=== PATIENT | male | born 1930 | race Caucasian/White ===

== ENCOUNTER 2016-09-12 15:19 | Observation (INO) | payer MEDICAID, MEDICARE ==
[~2016-09-12] VITALS: Ht 172.7 cm; Wt 81.6 kg
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
[2016-09-12 16:45] LABS: EOSINOPHILS % (AUTO) 2.9 % (0.0-3.0); LYMPHOCYTES % (AUTO) 24.8 % (20.0-45.0); MEAN CORPUSCULAR HEMOGLOBIN 30.2 PG (27.0-31.0); MEAN CORPUSCULAR HGB CONC 32.4 G/DL (32.0-36.0); MEAN CORPUSCULAR VOLUME 93 FL (80-99); MEAN PLATELET VOLUME 6.2 FL (6.5-10.1); MONOCYTES % (AUTO) 5.7 % (1.0-10.0); NEUTROPHILS % (AUTO) 65.7 % (45.0-75.0); PLATELET COUNT 175 K/UL (150-450); RED BLOOD COUNT 4.69 M/UL (4.70-6.10); RED CELL DISTRIBUTION WIDTH 12.5 % (11.6-14.8); WHITE BLOOD COUNT 8.5 K/UL (4.8-10.8)
--- NOTE | 2016-09-12 16:48 | Diagnostic Imaging Report ---
Indication: PAIN Technique: One view of the chest Comparison: 07/30/2015 Findings: The lungs and pleural spaces are clear. Heart size is borderline enlarged. The aorta is tortuous ectatic and calcified. Incidentally noted is a comminuted fracture of the left proximal humeral shaft Impression: No acute cardio pulmonary process Left humeral fracture incidentally noted Findings discussed by phone with nurse in the emergency room at the time of interpretation
[2016-09-12 16:51] LABS: PROTHROMBIN TIME 10.5 SEC (9.30-11.50)
[2016-09-12 16:56] LABS: TROPONIN I < 0.30 ng/mL (<=0.30)
[2016-09-12 16:57] LABS: ALANINE AMINOTRANSFERASE 28 U/L (3-41); ALBUMIN/GLOBULIN RATIO 1.4 (1.0-2.7); ANION GAP 17 (5-15); ASPARTATE AMINO TRANSFERASE 25 U/L (5-40); CALCIUM 10.2 mg/dL (8.6-10.2); CARBON DIOXIDE 24 mEQ/L (20-30); CHLORIDE 100 mEQ/L (98-107); CREATININE 1.2 mg/dL (0.7-1.2); HEMOLYSIS 19; POTASSIUM 4.3 mEQ/L (3.4-4.9); SODIUM 141 mEQ/L (135-145); TOTAL PROTEIN 7.5 g/dL (6.6-8.7)
[2016-09-12 17:06] VITALS: BP 211/94
[2016-09-12 17:21] LABS: CKMB 2.8 ng/mL (< 6.7)
[2016-09-12 17:22] LABS: APPEARANCE,URINE CLEAR; KETONES,URINE NEGATIVE (NEGATIVE); LEUKOCYTE ESTERASE ,URINE NEGATIVE (NEGATIVE); NITRITE,URINE NEGATIVE (NEGATIVE); PH,URINE 5 (4.5-8.0); PROTEIN,URINE 1+ (NEGATIVE); UROBILINOGEN,URINE NORMAL MG/DL (0.0-1.0)
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
[2016-09-12 17:43] VITALS: BP 210/119
[2016-09-12] MEDS ORDERED: TdaP Vaccine 0.5ml Syr IM ONE (17:45)
[2016-09-12] MEDS ORDERED: Lidocaine 1% 10mg/ml/EPI 0.01mg/ml 50ml INJ ONE (17:45)
[2016-09-12 17:54] LABS: AMORPHOUS SEDIMENT,UR FEW /LPF; BACTERIA,URINE FEW /HPF; WBC,URINE 0-2 /HPF (0 - 0)
[2016-09-12 18:30] VITALS: BP 148/87
[2016-09-12 20:37] VITALS: BP 152/81
[2016-09-13] VITALS: BP 154/80
[2016-09-13] MEDS: Norco 5mg/325mg tab ORAL PRN ×2 (00:25→06:27)
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
[2016-09-13 04:00] VITALS: BP 120/66
[2016-09-13] MEDS ORDERED: NKM (07:39)
[2016-09-13] MEDS ORDERED: vitamin b 12 SUBQ (07:44)
[2016-09-13 07:50] VITALS: BP 128/64
[2016-09-13 09:13] LABS: BASOPHILS % (AUTO) 0.4 % (0.0-2.0); EOSINOPHILS % (AUTO) 0.2 % (0.0-3.0); LYMPHOCYTES % (AUTO) 10.8 % (20.0-45.0); MEAN CORPUSCULAR HEMOGLOBIN 29.7 PG (27.0-31.0); MEAN CORPUSCULAR HGB CONC 32.2 G/DL (32.0-36.0); MEAN CORPUSCULAR VOLUME 92 FL (80-99); MEAN PLATELET VOLUME 6.5 FL (6.5-10.1); MONOCYTES % (AUTO) 8.1 % (1.0-10.0); NEUTROPHILS % (AUTO) 80.5 % (45.0-75.0); PLATELET COUNT 236 K/UL (150-450); RED CELL DISTRIBUTION WIDTH 12.6 % (11.6-14.8)
[2016-09-13 09:30] LABS: ALANINE AMINOTRANSFERASE 27 U/L (3-41); ALBUMIN/GLOBULIN RATIO 1.4 (1.0-2.7); ANION GAP 18 (5-15); ASPARTATE AMINO TRANSFERASE 24 U/L (5-40); CALCIUM 9.7 mg/dL (8.6-10.2); CARBON DIOXIDE 24 mEQ/L (20-30); CHLORIDE 97 mEQ/L (98-107); CREATININE 1.2 mg/dL (0.7-1.2); HEMOLYSIS 6; SODIUM 139 mEQ/L (135-145); TOTAL PROTEIN 7.5 g/dL (6.6-8.7)
[2016-09-13 09:42] LABS: BILIRUBIN,DIRECT 0.2 mg/dL (0.1-0.3)
[2016-09-13 11:18] VITALS: BP 129/70
--- NOTE | 2016-09-13 15:09 | Geriatric Progress Note ---
Assessment/Plan Problems: (1) Concussion (2) Left humeral fracture (3) Laceration of forehead without complication Assessment/Plan Patient stable for return to [facility]. Tylenol, Zofran, [place] prescribed. Will arrange C to f/u, P.T., O.T., remove sutures. To see Dr. Decker in one week. Continue regimen otherwise. Dictated #[id number] Discussed with: patient, hospital staff, [facility] staff Subjective Interval Events Patient reports feeling better. Last p.m. developed nausea, vomiting, c/w concussion. Today no vomiting, but still nauseated. Able to drink fluid. Denies h/a, visual or auditory changes. Speech, mental status c/w baseline. Pain required [place] last p.m., adequately controlled. Cleared by Dr. Decker for d/c. Sling placed, brace ordered. Laceration sutured. Leukocytosis this am likely reactive. CK elevated due to muscle injury. Otherwise labs unremarkable. Able to ambulate with P.T. Constitutional: Reports: malaise, weakness, Denies: chills, fever, sweats Eye: Denies: blurred vision, double vision, eye pain ENT: Denies: ear pain, hearing loss Respiratory: Denies: shortness of breath, wheezing Cardiovascular: Denies: chest pain, edema, palpitations Gastrointestinal/Abdominal: Reports: nausea Genitourinary: Denies: dysuria Musculoskeletal: Reports: muscle pain, Denies: back pain, joint pain Neurologic: Denies: dizziness, headache, numbness, paresthesia, seizure, tingling Geriatric Geriatric Last 24 Hour Vital Signs Date Time Temp Pulse Resp B/P Pulse Ox O2 Delivery O2 Flow Rate FiO2 09/13/16 12:00 77 09/13/16 11:18 97.5 63 19 129/70 98 Room Air 09/13/16 09:55 77 78 87 09/13/16 08:00 74 09/13/16 07:50 96.8 84 20 128/64 94 Room Air 09/13/16 04:00 98.2 93 20 120/66 93 Room Air 09/13/16 04:00 91 09/13/16 01:00 112 113 09/13/16 00:00 97.2 112 20 154/80 94 Room Air 09/13/16 00:00 106 09/12/16 21:40 107 09/12/16 21:00 108 114 09/12/16 20:39 98.9 81 16 152/81 100 Room Air 09/12/16 20:37 98.9 81 16 152/81 100 Room Air 09/12/16 18:30 74 24 148/87 97 Room Air 09/12/16 17:44 210/119 09/12/16 17:43 89 24 210/119 97 Room Air 09/12/16 17:06 99.0 74 16 211/94 94 Room Air 09/12/16 15:14 99.0 89 16 211/94 94 Room Air Intake and Output 09/12/16 09/13/16 19:00 07:00 Output Total 350 ml 700 ml Balance -350 ml -700 ml Output Urine Total 350 ml 700 ml # Voids 2 Laboratory Tests Test 09/12/16 16:20 09/12/16 17:00 09/13/16 08:35 White Blood Count 8.5 K/UL (4.8-10.8) 12.0 K/UL (4.8-10.8) H Red Blood Count 4.69 M/UL (4.70-6.10) L 4.80 M/UL (4.70-6.10) Hemoglobin 14.2 G/DL (14.2-18.0) 14.3 G/DL (14.2-18.0) Hematocrit 43.7 % (42.0-52.0) 44.4 % (42.0-52.0) Mean Corpuscular Volume 93 FL (80-99) 92 FL (80-99) Mean Corpuscular Hemoglobin 30.2 PG (27.0-31.0) 29.7 PG (27.0-31.0) Mean Corpuscular Hemoglobin Concent 32.4 G/DL (32.0-36.0) 32.2 G/DL (32.0-36.0) Red Cell Distribution Width 12.5 % (11.6-14.8) 12.6 % (11.6-14.8) Platelet Count 175 K/UL (150-450) 236 K/UL (150-450) Mean Platelet Volume 6.2 FL (6.5-10.1) L 6.5 FL (6.5-10.1) Neutrophils (%) (Auto) 65.7 % (45.0-75.0) 80.5 % (45.0-75.0) H Lymphocytes (%) (Auto) 24.8 % (20.0-45.0) 10.8 % (20.0-45.0) L Monocytes (%) (Auto) 5.7 % (1.0-10.0) 8.1 % (1.0-10.0) Eosinophils (%) (Auto) 2.9 % (0.0-3.0) 0.2 % (0.0-3.0) Basophils (%) (Auto) 1.0 % (0.0-2.0) 0.4 % (0.0-2.0) Prothrombin Time 10.5 SEC (9.30-11.50) Prothromb Time International Ratio 1.0 (0.9-1.1) Sodium Level 141 mEQ/L (135-145) 139 mEQ/L (135-145) Potassium Level 4.3 mEQ/L (3.4-4.9) 4.0 mEQ/L (3.4-4.9) Chloride Level 100 mEQ/L (98-107) 97 mEQ/L (98-107) L Carbon Dioxide Level 24 mEQ/L (20-30) 24 mEQ/L (20-30) Anion Gap 17 (5-15) H 18 (5-15) H Blood Urea Nitrogen 31 mg/dL (7-23) H 29 mg/dL (7-23) H Creatinine 1.2 mg/dL (0.7-1.2) 1.2 mg/dL (0.7-1.2) Estimat Glomerular Filtration Rate mL/min (>60) mL/min (>60) Glucose Level 142 mg/dL (74-106) H 188 mg/dL (74-106) H Calcium Level 10.2 mg/dL (8.6-10.2) 9.7 mg/dL (8.6-10.2) Total Bilirubin 0.3 mg/dL (0.0-1.2) 1.1 mg/dL (0.0-1.2) Aspartate Amino Transf (AST/SGOT) 25 U/L (5-40) 24 U/L (5-40) Alanine Aminotransferase (ALT/SGPT) 28 U/L (3-41) 27 U/L (3-41) Alkaline Phosphatase 38 U/L (40-129) L 36 U/L (40-129) L Total Creatine Kinase 78 U/L (38-174) 184 U/L (38-174) H Creatine Kinase MB 2.8 ng/mL (< 6.7) Creatine Kinase MB Relative Index 3.5 Troponin I < 0.30 ng/mL (<=0.30) Total Protein 7.5 g/dL (6.6-8.7) 7.5 g/dL (6.6-8.7) Albumin 4.4 g/dL (3.5-5.2) 4.4 g/dL (3.5-5.2) Globulin 3.1 g/dL 3.1 g/dL Albumin/Globulin Ratio 1.4 (1.0-2.7) 1.4 (1.0-2.7) Urine Color Pale yellow Urine Appearance Clear Urine pH 5 (4.5-8.0) Urine Specific [place] 1.025 (1.005-1.035) Urine Protein 1+ (NEGATIVE) H Urine Glucose (UA) Negative (NEGATIVE) Urine Ketones Negative (NEGATIVE) Urine Occult Blood 1+ (NEGATIVE) H Urine Nitrite Negative (NEGATIVE) Urine Bilirubin Negative (NEGATIVE) Urine Urobilinogen Normal MG/DL (0.0-1.0) Urine Leukocyte Esterase Negative (NEGATIVE) Urine RBC 2-4 /HPF (0 - 0) H Urine WBC 0-2 /HPF (0 - 0) Urine Squamous Epithelial Cells None /LPF (NONE/OCC) Urine Amorphous Sediment Few /LPF (NONE) H Urine Bacteria Few /HPF (NONE) Direct Bilirubin 0.2 mg/dL (0.1-0.3) Current Medications Medications (Trade) Dose Ordered Sig/Sherley Route PRN Reason Start Time Stop Time Status Last Admin Dose Admin Acetaminophen (Tylenol) 500 mg Q4H PRN ORAL Mild Pain (Pain Scale 1-3) 09/12/16 19:30 10/12/16 19:29 Acetaminophen/ Hydrocodone Bitart ([place] 5/325) 1 tab Q6H PRN ORAL Severe Pain (Pain Scale 7-10) 09/12/16 19:30 09/19/16 19:29 09/13/16 06:27 Dextrose (Dextrose 50%) STAT PRN IV Hypoglycemia 09/13/16 03:30 10/13/16 03:29 Ranitidine HCl (Zantac) 150 mg BEDTIME ORAL 09/12/16 21:00 10/12/16 20:59 09/12/16 22:20 Height (Feet): 5 Height (Inches): 8.00 Weight (Pounds): 180 General Appearance: alert Head: normocephalic, other - excoriation bridge of nose, L supraorbital sutured laceration Eyes: bilateral anicteric ENT: normal voice Neck: full range of motion, no mass Respiratory: lungs clear Cardiovascular: regular rate, rhythm Gastrointestinal: normal bowel sounds, non tender, soft, no mass, no organomegaly, non-distended, no guarding Musculoskeletal: no calf tenderness Edema: no edema noted Generalized Neurologic: alert, oriented x3, motor strength/tone normal - except LUE in sling. PB VILLAFANA Sep 13, 2016 15:09
[2016-09-13 15:59] VITALS: BP 134/60
[2016-09-13] MEDS ORDERED: TYLENOL325 MG ORAL (16:25)
[2016-09-13] MEDS ORDERED: ZOFRAN4 M1 ORAL (16:27)
[2016-09-13] MEDS ORDERED: NORCO 5-325 TA1 EAC1 ORAL (16:35)
--- NOTE | 2016-09-13 23:09 | Cardiology Report ---
APPROVED REPORT EKG Measurement Heart [id number] [place] [id number] [id number] Sinus rhythm with premature atrial complexes Voltage criteria for left ventricular hypertrophy Nonspecific ST abnormality Abnormal ECG
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
== END 2016-09-13 17:35 ==
LOC: EDBD 15:19 → EMR 16:05 → 2E 16:28 → INTOOBSV 16:28 → EDBEDREQ 17:30 → 2E 22:18
DX: S42.352A Displaced comminuted fracture of shaft of humerus, left arm, initial encounter for closed fracture (principal); S06.0X1A Concussion with loss of consciousness of 30 minutes or less, initial encounter; S01.81XA Laceration without foreign body of other part of head, initial encounter; V03.10XA Pedestrian on foot injured in collision with car, pick-up truck or van in traffic accident, initial encounter; Y92.414 Local residential or business street as the place of occurrence of the external cause; Y99.8 Other external cause status; E86.0 Dehydration; E53.8 Deficiency of other specified B group vitamins; G25.3 Myoclonus; R00.0 Tachycardia, unspecified; I10 Essential (primary) hypertension; E78.5 Hyperlipidemia, unspecified; G47.69 Other sleep related movement disorders; F41.8 Other specified anxiety disorders; Z23 Encounter for immunization
CPT/HCPCS: 12013; 36415 ×2; 70450; 71010; 73060; 80053 ×2; 81003; 82248; 82550 ×2; 82553; 84484; 85025 ×2; 85610; 87081 ×2; 90471; 90715; 93005; 97116; 97161; 97530; 99285; G0378 ×2; G8978; G8979; J0360; J2405

== ENCOUNTER 2016-09-17 13:55 | Emergency (ER) | payer MEDICARE ==
[~2016-09-17] VITALS: Ht 170.2 cm; Wt 86.2 kg
[~2016-09-17 13:55] MED LIST: NKM; NORCO 5-325 TA1 EAC1 ORAL; TYLENOL325 MG ORAL; ZOFRAN4 M1 ORAL; vitamin b 12 SUBQ
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
[2016-09-17] MEDS ORDERED: Morphine Sulfate 2mg/ml Inj ONE (14:28)
[2016-09-17] MEDS ORDERED: Morphine Sulfate 2mg/ml Inj IVP ONE (14:45)
[2016-09-17 14:51] LABS: EOSINOPHILS % (AUTO) 0.5 % (0.0-3.0); LYMPHOCYTES % (AUTO) 14.9 % (20.0-45.0); MEAN CORPUSCULAR HEMOGLOBIN 30.7 PG (27.0-31.0); MEAN CORPUSCULAR HGB CONC 33.7 G/DL (32.0-36.0); MEAN CORPUSCULAR VOLUME 91 FL (80-99); MEAN PLATELET VOLUME 6.3 FL (6.5-10.1); MONOCYTES % (AUTO) 7.6 % (1.0-10.0); PLATELET COUNT 228 K/UL (150-450); RED CELL DISTRIBUTION WIDTH 12.2 % (11.6-14.8); WHITE BLOOD COUNT 9.5 K/UL (4.8-10.8)
[2016-09-17 15:10] LABS: ALBUMIN/GLOBULIN RATIO 1.3 (1.0-2.7); ANION GAP 15 (5-15); ASPARTATE AMINO TRANSFERASE 27 U/L (5-40); CALCIUM 9.8 mg/dL (8.6-10.2); CARBON DIOXIDE 27 mEQ/L (20-30); CHLORIDE 100 mEQ/L (98-107); CREATININE 1.2 mg/dL (0.7-1.2); HEMOLYSIS 6; POTASSIUM 4.3 mEQ/L (3.4-4.9); SODIUM 142 mEQ/L (135-145); TOTAL PROTEIN 7.3 g/dL (6.6-8.7)
[2016-09-17 15:20] LABS: ALANINE AMINOTRANSFERASE 39 U/L (3-41)
[2016-09-17 16:56] VITALS: BP 143/81
--- NOTE | 2016-09-19 15:22 | Diagnostic Imaging Report ---
APPROVED REPORT CPT Code: 28829 Present Symptoms Upper Extremity Pain: Left LEFT UPPER EXTREMITY: Venous imaging reveals patency of the internal jugular, subclavian, axillary and brachial veins. The cephalic and basilic veins are also patent. Doppler indicates normal spontaneous flow within these venous segments.
== END 2016-09-17 16:59 ==
LOC: EDBD 13:55 → EMR 14:27
DX: R22.32 Localized swelling, mass and lump, left upper limb (principal); S40.022D Contusion of left upper arm, subsequent encounter; X58.XXXD Exposure to other specified factors, subsequent encounter; I10 Essential (primary) hypertension; Z88.8 Allergy status to other drugs, medicaments and biological substances
CPT/HCPCS: 36415; 80053; 85025; 93971; 96374; 99284; J2270

== ENCOUNTER 2017-01-26 08:42 | Outpatient (CLI) | payer MEDICARE ==
--- NOTE | 2017-01-28 17:50 | Diagnostic Imaging Report ---
APPROVED REPORT CPT Code: 78022 Symptoms Comments: Weakness R/O Arterial insufficiency RIGHT LEG: Common femoral artery waveform analysis is within normal limits at rest. Color flow duplex sonography reveals minimal calcification throughout the superficial femoral, and popliteal arteries. There is no evidence of stenosis or occlusion within these segments. The tibioperoneal trunks are patent. The posterior tibial, anterior tibial and dorsalis pedis arteries are also minimally calcified. MURALI within normal limits at rest: 1.0 (right leg). LEFT LEG: Common femoral artery waveform analysis is within normal limits at rest. Color flow duplex sonography reveals minimal calcification throughout the superficial femoral, and popliteal arteries. There is no evidence of stenosis or occlusion within these segments. The tibioperoneal trunks are patent. The posterior tibial, anterior tibial and dorsalis pedis arteries are also minimally calcified. A mild (30%) stenosis is seen in the proximal anterior tibial artery. MURALI within normal limits at rest: 1.1 (left leg).
== END 2017-01-26 10:42 | disposition home or self-care (01) ==
LOC: VAS 08:42
DX: R53.1 Weakness (principal)
CPT/HCPCS: 93925

== ENCOUNTER 2017-03-07 09:00 | Outpatient (RCR) | payer MEDICARE | END 2017-03-10 | disposition home or self-care (01) | LOC: PTY 09:00 | DX: G62.9 Polyneuropathy, unspecified (principal); M53.81 Other specified dorsopathies, occipito-atlanto-axial region; I10 Essential (primary) hypertension | CPT/HCPCS: 97110; 97162; G8978; G8979 ==

== ENCOUNTER 2017-04-05 09:01 | Outpatient (RCR) | payer MEDICARE | END 2017-04-10 | disposition home or self-care (01) | LOC: PTY 09:01 | DX: R53.1 Weakness (principal); M53.81 Other specified dorsopathies, occipito-atlanto-axial region; I10 Essential (primary) hypertension ==

== ENCOUNTER 2017-04-13 15:02 | Emergency (ER) | payer MEDICARE ==
[~2017-04-13] VITALS: Ht 160 cm; Wt 60.3 kg
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
[2017-04-13] MEDS ORDERED: TYLENOL325 MG ORAL (16:01)
--- NOTE | 2017-04-13 16:12 | Diagnostic Imaging Report ---
Indication: TRAUMA Technique: spiral acquisitions obtained through the brain. Angled axial and coronal 5 x 5 mm slices were reconstructed. No IV contrast utilized. Radiation dose was minimized using automated exposure control Total dose length product 1390 mGycm. CTDIvol(s) 70 mGy Comparison: 09/12/2016 FINDINGS: No acute hemorrhage or edema. No mass effect or midline shift. There is age-related enlargement of the ventricles and extra axial CSF spaces. There is periventricular deep white matter ischemic change. Normal guzman-white differentiation. There is evidence of prior cataract surgery on the right.. There is ethmoid and frontal sinus mucosal disease.. Intact calvarium. Findings are unchanged IMPRESSION: Chronic and age-related changes. Negative for acute intracranial bleed or mass effect Sinus disease The CT scanner at [facility] is accredited by the [employer] and the scans are performed using protocols designed to limit radiation exposure to as low as reasonably achievable to attain images of sufficient resolution adequate for diagnostic evaluation
[2017-04-13 16:15] VITALS: BP 189/86
== END 2017-04-13 16:15 | disposition home or self-care (01) ==
LOC: EDBD 15:02 → EMR 15:14
DX: S09.8XXA Other specified injuries of head, initial encounter (principal); W19.XXXA Unspecified fall, initial encounter; Y92.811 Bus as the place of occurrence of the external cause; I10 Essential (primary) hypertension; K59.00 Constipation, unspecified; K58.9 Irritable bowel syndrome, unspecified; Z88.8 Allergy status to other drugs, medicaments and biological substances; J32.9 Chronic sinusitis, unspecified
CPT/HCPCS: 70450; 99284

== ENCOUNTER 2017-05-09 14:25 | Outpatient (RCR) | payer MEDICARE | END 2017-05-10 | disposition home or self-care (01) | LOC: PTY 14:25 | DX: G62.9 Polyneuropathy, unspecified (principal); M53.81 Other specified dorsopathies, occipito-atlanto-axial region; I10 Essential (primary) hypertension ==

== ENCOUNTER 2017-05-23 13:12 | Outpatient (RCR) | payer MEDICARE | END 2017-06-10 | disposition home or self-care (01) | LOC: PTY 13:12 | DX: R53.81 Other malaise (principal); R26.9 Unspecified abnormalities of gait and mobility | CPT/HCPCS: 97110; 97112; 97140; G8978; G8979 ==

== ENCOUNTER 2017-08-24 10:20 | Outpatient (CLI) | payer MEDICARE ==
--- NOTE | 2017-08-24 14:17 | Diagnostic Imaging Report ---
Indication: Neck pain, history of cervical myelopathy Technique: Sagittal T1 FLAIR PROPELLER, sagittal T2 PROPELLOR, sagittal STIR, axial T2 PROPELLER, axial 3D COSMIC ASPIR images were obtained through the cervical spine Comparison: none Findings: Bony alignment is normal. Vertebral body marrow signal is preserved. No abnormal cord signal demonstrated. There is hypertrophy of the posterior ring of the anterior atlantoaxial ligament. This does not significantly compromise the spinal canal or neural foramen At C2-3, the disc space is preserved. No significant disc bulge or protrusion or spinal canal or neural foraminal stenosis At C3-4, there is moderate degenerative disc narrowing. There is circumferential annular bulge. This results in borderline narrowing of the spinal canal. There is mild right and moderate left neural foraminal stenosis at this level. At C4-5, there is mild degenerative disc narrowing. There is circumferential annular bulge which results in only borderline narrowing of the spinal canal. There is moderate right and moderate to severe left neural foraminal stenosis at this level, predominantly due to facet arthrosis. 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 There are posterior osteophytes at this level which do not significantly impinge upon the spinal canal. There is mild bilateral neural foraminal stenosis There is mild narrowing of the C6-7 disc. There is circumferential annular bulge which does not significantly narrow the spinal canal. There is moderate bilateral neural foraminal stenosis At C7-T1, no significant disc bulge or protrusion, spinal stenosis, or neural foraminal stenosis. The included extra spinal soft tissues are unremarkable. Impression: No acute abnormality Degenerative changes, as detailed on a level by level basis above
--- NOTE | 2017-08-24 14:55 | Diagnostic Imaging Report ---
Indication: Back pain Technique: Sagittal T1 and T2 fast spin echo, sagittal STIR, axial T1 and T2 fast spin-echo images of the lumbar spine Comparison: none Findings: Bony alignment is normal. Vertebral body heights are preserved. Vertebral body marrow signal is preserved. Conus medullaris terminates at the L1 level. At T12-L1, L1-L2, L2-L3, no significant disc bulge or protrusion, disc space narrowing, spinal stenosis, or neural foraminal stenosis. At L3-4, there is minimal circumferential annular bulge. This does not significantly impinge upon the spinal canal, but may slightly compromise the right neural foramen. The disc space is preserved. At L4-5, there is mild degenerative disc narrowing. There is circumferential annular bulge and a posterior high intensity zone within the bulging disc. There is also broad-based central and left paracentral mild disc protrusion, which does not significantly narrow the spinal canal but may impinge slightly on the left lateral recess. The neural foramina are preserved At L5-S1, no significant disc bulge or protrusion, spinal stenosis, or neural foraminal stenosis. The included extraspinal soft tissues are remarkable for the presence of bilateral right greater than left renal parapelvic cysts. Impression: Circumferential annular bulge and central and paracentral mild disc protrusion with evidence of a small annular fissure at L4-5, no definite significant spinal canal compromise but there may be slight impingement upon the left lateral recess Other mild degenerative changes as detailed on a level by level basis above Incidental finding of bilateral renal parapelvic cysts
== END 2017-08-24 12:20 | disposition home or self-care (01) ==
LOC: MRI 10:20
DX: M54.9 Dorsalgia, unspecified (principal); M48.061 Spinal stenosis, lumbar region without neurogenic claudication; N20.0 Calculus of kidney; M48.02 Spinal stenosis, cervical region; M54.2 Cervicalgia
CPT/HCPCS: 72141; 72148

== ENCOUNTER 2018-07-11 09:38 | Outpatient (CLI) | payer MEDICARE ==
[2018-07-11 10:30] LABS: BASOPHILS % (AUTO) 0.6 % (0.0-2.0); EOSINOPHILS % (AUTO) 2.7 % (0.0-3.0); HEMATOCRIT 47.2 % (42.0-52.0); HEMOGLOBIN 15.6 G/DL (14.2-18.0); LYMPHOCYTES % (AUTO) 20.8 % (20.0-45.0); MEAN CORPUSCULAR VOLUME 91 FL (80-99); MONOCYTES % (AUTO) 6.8 % (1.0-10.0); NEUTROPHILS % (AUTO) 69.3 % (45.0-75.0); PLATELET COUNT 268 K/UL (150-450); RED BLOOD COUNT 5.21 M/UL (4.70-6.10); RED CELL DISTRIBUTION WIDTH 12.4 % (11.6-14.8); WHITE BLOOD COUNT 7.2 K/UL (4.8-10.8)
[2018-07-11 10:55] LABS: ALANINE AMINOTRANSFERASE 34 U/L (12-78); ALBUMIN 4.3 G/DL (3.4-5.0); ALBUMIN/GLOBULIN RATIO 1.1 (1.0-2.7); ALKALINE PHOSPHATASE 48 U/L (46-116); ANION GAP 11 mmol/L (5-15); ASPARTATE AMINO TRANSFERASE 20 U/L (15-37); BILIRUBIN,TOTAL 0.7 MG/DL (0.2-1.0); BLOOD UREA NITROGEN 32 mg/dL (7-18); CALCIUM 10.1 MG/DL (8.5-10.1); CARBON DIOXIDE 28 MMOL/L (21-32); CHLORIDE 104 MMOL/L (98-107); CREATININE 1.4 MG/DL (0.55-1.30); SODIUM 142 MMOL/L (136-145)
--- NOTE | 2018-07-11 13:06 | Diagnostic Imaging Report ---
Indication: Cough Technique: 2 views of the chest Comparison: 09/12/2016 Findings: The lungs and pleural spaces are clear. The heart size is normal. The aorta is tortuous and calcified. There are calcified mediastinal lymph nodes Impression: No acute process
== END 2018-07-11 11:38 | disposition home or self-care (01) ==
LOC: LAB 09:38
DX: E55.9 Vitamin D deficiency, unspecified (principal); R26.89 Other abnormalities of gait and mobility; R05 Cough
CPT/HCPCS: 36415; 71046; 80053; 82306; 84443; 85025; 93005